=== PATIENT | male | born 1960 | race Caucasian/White ===

== ENCOUNTER 2025-02-01 07:40 | Day surgery (SDC) | payer MEDICARE, MEDICAID ==
[~2025-02-01 07:40] MED LIST: Dexamethasone 4 MG/ML 5 ML MDV ONE; Lidocaine 1% 4 ML ONE; Midazolam 1 MG/ML 2 ML SDV ONE; Ondansetron 4 MG/2 ML SDV ONE; Propofol 200 MG/20 ML SDV ONE; Sodium Chloride 0.9% 10 ML Syringe FLUSH PRN; Sodium Chloride 0.9% 10 ML Syringe FLUSH SCH; fentaNYL 250 MCG/5 ML SDV ONE
[2025-02-01] MEDS: Lactated Ringers 1,000 ML IV SCH (08:05)
[2025-02-01] MEDS ORDERED: EPINEPHrine 1 MG/ML SDV ONE (08:05)
[2025-02-01] MEDS ORDERED: ePHEDrine 50 MG/ML SDV ONE (08:11)
[2025-02-01] MEDS ORDERED: Ondansetron 4 MG/2 ML SDV IVPUSH PRN (08:26)
[2025-02-01] MEDS: Albuterol 0.083% 2.5 MG/3 ML Neb Soln NEB ONE (08:47)
[2025-02-01] MEDS: Bupivacaine 0.5%/EPINEPHrine 1:200,000 30 ML SDV ONE (09:16)
[2025-02-01] MEDS ORDERED: fentaNYL 100 MCG/2 ML SDV ONE (10:26)
[2025-02-01] MEDS: fentaNYL 100 MCG/2 ML SDV IVPUSH PRN (10:27)
== END 2025-02-01 12:10 | disposition home or self-care (01) ==
LOC: JD.SDS 07:40
PROVIDERS: ATTEND Surgery
DX: C78.6 Secondary malignant neoplasm of retroperitoneum and peritoneum (principal); F17.210 Nicotine dependence, cigarettes, uncomplicated
CPT/HCPCS: 49321; 88305; 88341; 88342; 93005; A9270; J0665; J1100; J2003; J2250; J2405; J2704; J3010; J7120; 00840; 93010; J0171; J0690; J3490